=== PATIENT | male | born 1950 | race African-American/Black ===

== ENCOUNTER 2017-10-27 14:17 | Emergency (ER) | payer MEDICARE, MEDICAID ==
[~2017-10-27] VITALS: Ht 177.8 cm; Wt 100.0 kg
[~2017-10-27 14:17] MED LIST: AMLO10TA4 PO; ASPI-1158 PO; BENA40TA9 PO; CYCL-108 PO; DOC Q LACE PO; DOCU-138 PO; GABA300C PO; HYDR-523 PO; LORA10CA PO; MAX PO; OMEP20CA4 PO; PRAV10TA PO; SULI150T PO
[2017-10-27 15:56] LABS: CHLORIDE 108 mEq/L (98-107)
[2017-10-27 15:57] LABS: PROTHROMBIN TIME 10.7 sec (9.4-11.6)
[2017-10-27 16:04] LABS: HEMATOCRIT. 37.5 % (42.0-52.0); HEMOGLOBIN. 12.2 g/dL (14.0-18.0); MEAN CORPUSCULAR HEMOGLOBIN 26.8 pg (28.0-32.0); MEAN CORPUSCULAR VOLUME 82.6 fL (80.0-94.0); MEAN PLATELET VOLUME 7.8 fl (7.4-10.4); PLATELET 270 x1000/uL (130-400); RED BLOOD CELL COUNT 4.55 mill/uL (4.7-6.1); RED CELL DISTRIBUTION WIDTH 15.1 % (11.6-14.6)
[2017-10-27 16:39] LABS: PLATELET ESTIMATE NORMAL
[2017-10-27] MEDS ORDERED: CEFTRIAXONE SODIUM 1 G/VIAL IM ONE (16:45)
[2017-10-27] MEDS ORDERED: LIDOCAINE HCL 1% 20ML VIAL (Pyxis) INJ INFIL ONE (16:45)
[2017-10-27] MEDS ORDERED: LIDOCAINE HCL/PF 1% 10 MG/ML 5ML VIAL IJ NR (18:25)
[2017-10-27 19:01] VITALS: BP 122/75
== END 2017-10-27 19:06 | disposition home or self-care (01) ==
LOC: ER 14:50
DX: L03.116 Cellulitis of left lower limb (principal); I10 Essential (primary) hypertension; D64.9 Anemia, unspecified; G89.29 Other chronic pain; M54.9 Dorsalgia, unspecified; E78.5 Hyperlipidemia, unspecified; E66.9 Obesity, unspecified; Z68.31 Body mass index [BMI] 31.0-31.9, adult; Z90.49 Acquired absence of other specified parts of digestive tract; Z87.828 Personal history of other (healed) physical injury and trauma; Z79.82 Long term (current) use of aspirin
CPT/HCPCS: 36415; 71045; 80053; 85025; 85610; 93970; 96372; 99285; J0696; J3490

== ENCOUNTER 2024-08-03 03:37 | Inpatient (IN) | payer MEDICARE, MEDICAID ==
[~2024-08-03] VITALS: Ht 177.8 cm; Wt 115.2 kg
[~2024-08-03 03:37] MED LIST changes: +ALLO100T MT; +AMLO-905 PO; -AMLO10TA4 PO; +AMLO5TAB88 MT; -ASPI-1158 PO; +ASPI-1406 PO; -BENA40TA9 PO; +BENA40TA91 PO; +DOCU-405 PO; +FURO40TA5 MT; +TRAZ-251 MT
[2024-08-03 04:23] LABS: BASOPHILS % 0.3 % (0.0-2.0); EOSINOPHILS % 0.2 % (0.0-5.0); HEMATOCRIT. 40.5 % (42.0-52.0); LYMPHOCYTES % 14.6 % (20.0-50.0); MEAN CORPUSCULAR HEMOGLOBIN 27.7 pg (28.0-32.0); MEAN CORPUSCULAR HGB CONC 32.1 g/dL (31.0-37.0); MEAN CORPUSCULAR VOLUME 86.3 fL (80.0-94.0); MEAN PLATELET VOLUME 7.4 fl (7.4-10.4); MONOCYTES % 8.8 % (2.0-8.0); NEUTROPHILS % 76.1 % (40.0-76.0); PLATELET 352 x1000/uL (130-400); RED BLOOD CELL COUNT 4.69 mill/uL (4.7-6.1); RED CELL DISTRIBUTION WIDTH 14.7 % (11.6-14.6); WHITE BLOOD COUNT 11.3 x1000/uL (4.5-11.0)
[2024-08-03 04:33] LABS: CHLORIDE 103 mEq/L (98-107); POTASSIUM 5.1 mEq/L (3.5-5.1); SODIUM 135 mEq/L (136-145)
[2024-08-03 04:34] LABS: CALCIUM 9.2 mg/dL (8.7-10.4); CARBON DIOXIDE 22 mEq/L (21-32)
[2024-08-03 04:39] LABS: CREATININE 2.3 mg/dL (0.6-1.3); GLUCOSE 127 mg/dL (70-105); UREA NITROGEN BLOOD 31 mg/dL (9-23)
[2024-08-03 04:41] LABS: TROPONIN I HIGH SENSITIVITY 6 ng/L (3.0-53)
[2024-08-03] MEDS: ASPIRIN 81MG TABLET PO ONE (05:50)
[2024-08-03] MEDS: ONDANSETRON 4MG ODT PO ONE (05:53)
[2024-08-03] MEDS: MAGNESIUM/ALUMINUM HYDROXIDE/SIMETHICONE 30ML UDC PO ONE (05:53)
[2024-08-03] MEDS: PANTOPRAZOLE SODIUM 40 MG/VIAL IV ONE (06:23)
[2024-08-03 07:38] LABS: TROPONIN I HIGH SENSITIVITY 6 ng/L (3.0-53)
[2024-08-03 08:00] VITALS: BP 165/97; PULSE 80; RESP 18; TEMP 36.5; O2SAT 97
[2024-08-03] MEDS: DEXT 5%/0.45% NACL 1000ML 1,000 ML IV SCH (09:00)
[2024-08-03] MEDS ORDERED: HYDRALAZINE 20MG/ML VIAL IV PRN (09:00)
[2024-08-03] MEDS ORDERED: ONDANSETRON HCL 4MG/2ML INJ IV PRN (09:00)
[2024-08-03] MEDS: PANTOPRAZOLE SODIUM 40 MG/VIAL IV SCH (10:14)
[2024-08-03] MEDS: CEFTRIAXONE 1GM/50ML 50 ML IV SCH (11:52)
[2024-08-03 12:00] VITALS: BP 141/86; PULSE 72; RESP 18; TEMP 36.6; O2SAT 96
[2024-08-03 12:26] VITALS: BP 165/97; PULSE 80; RESP 18; TEMP 36.5
[2024-08-03] MEDS ORDERED: LEVOFLOXACIN 500MG PREMIX 100 ML IV SCH (12:30)
[2024-08-03] MEDS ORDERED: ACETAMINOPHEN 650MG SUPP PR PRN (12:30)
[2024-08-03] MEDS ORDERED: MORPHINE SULFATE/PF 1 MG/ML 100 MG in BAG 1 EACH IV PRN (12:30)
[2024-08-03] MEDS ORDERED: IPRATROPIUM/ALBUTEROL 0.5-3(2.5)MG/3ML NEB NEB PRN (12:30)
[2024-08-03] MEDS: DOCUSATE SODIUM 100MG CAPSULE PO SCH (13:43)
[2024-08-03] MEDS: POLYETHYLENE GLYCOL 3350 (17GM) 1 DOSE PACK PO NR (13:43)
[2024-08-03] MEDS: LEVOFLOXACIN 750MG PREMIX 150 ML IV SCH (15:01)
[2024-08-03 16:00] VITALS: BP 128/77; PULSE 76; RESP 18; TEMP 36.2; O2SAT 96
[2024-08-03] MEDS ORDERED: NALOXONE HCL 0.4MG/ML VIAL IV PRN (17:00)
[2024-08-03 17:14] LABS: CHLORIDE 103 mEq/L (98-107); POTASSIUM 5.2 mEq/L (3.5-5.1); SODIUM 135 mEq/L (136-145)
[2024-08-03 17:15] LABS: CALCIUM 8.7 mg/dL (8.7-10.4); CARBON DIOXIDE 24 mEq/L (21-32)
[2024-08-03 17:20] LABS: CREATINE KINASE MB FRACTION < 0.5 ng/mL (0.5-3.6); CREATININE 2.1 mg/dL (0.6-1.3); GLUCOSE 100 mg/dL (70-105); TROPONIN I HIGH SENSITIVITY 5 ng/L (3.0-53); UREA NITROGEN BLOOD 27 mg/dL (9-23)
[2024-08-03 17:22] LABS: CREATINE KINASE 79 IU/L (46-171)
[2024-08-03] MEDS: MORPHINE SULFATE 2 MG/ML INJ (NOT FOR IM USE) IV PRN (17:36)
[2024-08-03 20:00] VITALS: BP 112/69; PULSE 84; RESP 20; TEMP 36.7; O2SAT 96
[2024-08-03] MEDS: SENNOSIDES 8.6MG TABLET PO SCH (20:03)
[2024-08-03 22:26] LABS: *AMPHETAMINES SCREEN URINE NEGATIVE (NEGATIVE); *BARBITURATES SCREEN URINE NEGATIVE (NEGATIVE); *BENZODIAZEPINES SCREEN URINE NEGATIVE (NEGATIVE); *COCAINE SCREEN URINE NEGATIVE (NEGATIVE); CANNABINOID URINE SCREEN NEGATIVE (NEGATIVE); ECSTASY MDMA SCREEN URINE NEGATIVE (NEGATIVE); METHADONE URINE SCREEN NEGATIVE (NEGATIVE); OPIATES URINE SCREEN PRESUMPTIVE POSITIVE (NEGATIVE); PHENCYCLIDINE URINE SCREEN NEGATIVE (NEGATIVE)
[2024-08-03 23:16] VITALS: PULSE 76; RESP 20; O2SAT 96
[2024-08-04] VITALS: BP 128/90; PULSE 80; RESP 16; TEMP 36.5; O2SAT 94
[2024-08-04 00:49] LABS: CREATINE KINASE MB FRACTION 0.9 ng/mL (0.5-3.6)
[2024-08-04 04:00] VITALS: BP 145/85; PULSE 70; RESP 16; TEMP 36.1; O2SAT 97
[2024-08-04 06:24] LABS: BASOPHILS % 0.2 % (0.0-2.0); EOSINOPHILS % 2.1 % (0.0-5.0); HEMOGLOBIN. 12.2 g/dL (14.0-18.0); LYMPHOCYTES % 24.4 % (20.0-50.0); MEAN CORPUSCULAR HEMOGLOBIN 28.4 pg (28.0-32.0); MEAN CORPUSCULAR HGB CONC 32.9 g/dL (31.0-37.0); MEAN CORPUSCULAR VOLUME 86.3 fL (80.0-94.0); MEAN PLATELET VOLUME 7.9 fl (7.4-10.4); MONOCYTES % 13.3 % (2.0-8.0); PLATELET 303 x1000/uL (130-400); RED BLOOD CELL COUNT 4.29 mill/uL (4.7-6.1); RED CELL DISTRIBUTION WIDTH 14.7 % (11.6-14.6); WHITE BLOOD COUNT 8.3 x1000/uL (4.5-11.0)
[2024-08-04 06:31] LABS: ALANINE AMINOTRANSFERASE 14 IU/L (10-49); ALBUMIN 4.4 g/dL (3.2-4.8); ASPARTATE AMINOTRANSFERASE 12 IU/L (<34); BILIRUBIN DIRECT 0.1 mg/dL (<=3.0); BILIRUBIN TOTAL 0.4 mg/dL (0.1-1.0); PROTEIN TOTAL 6.6 g/dL (6.0-8.3)
[2024-08-04 07:04] LABS: HEPATITIS B SURFACE ANTIGEN NEGATIVE (Negative)
[2024-08-04 07:25] LABS: HEPATITIS A AB IGM NEGATIVE (Negative)
[2024-08-04 07:26] LABS: HEPATITIS B CORE AB IGM NEGATIVE (Negative); HEPATITIS C AB NON REACTIVE (Neg) (Negative)
[2024-08-04 08:00] VITALS: BP 132/85; PULSE 75; RESP 18; TEMP 36.5; O2SAT 97
[2024-08-04] MEDS ORDERED: PANTOPRAZOLE SODIUM 40 MG/VIAL IV SCH (09:00)
[2024-08-04 12:00] VITALS: BP 136/74; PULSE 75; RESP 18; TEMP 37.1; O2SAT 98
[2024-08-04] MEDS: SUCRALFATE 1G TABLET PO SCH (14:22)
[2024-08-04] MEDS: ALLOPURINOL 100 MG TABLET PO SCH (14:22)
[2024-08-04 16:00] VITALS: BP 164/90; PULSE 71; RESP 18; TEMP 36.6; O2SAT 99
[2024-08-04 20:00] VITALS: BP 155/87; PULSE 76; RESP 20; TEMP 36.9; O2SAT 96
[2024-08-04] MEDS: TRAZODONE HCL 50MG TABLET PO SCH (20:16)
[2024-08-04] MEDS: GABAPENTIN 300MG CAPSULE PO SCH (20:16)
[2024-08-04] MEDS: CYCLOBENZAPRINE 10MG TABLET PO SCH (20:18)
[2024-08-05] VITALS: BP 137/82; PULSE 78; RESP 20; TEMP 36.8; O2SAT 100
[2024-08-05 04:00] VITALS: BP 134/83; PULSE 77; RESP 20; TEMP 36.8; O2SAT 97
[2024-08-05 07:50] LABS: BASOPHILS % 0.3 % (0.0-2.0); EOSINOPHILS % 3.6 % (0.0-5.0); HEMATOCRIT. 35.5 % (42.0-52.0); HEMOGLOBIN. 11.8 g/dL (14.0-18.0); LYMPHOCYTES % 33.9 % (20.0-50.0); MEAN CORPUSCULAR HEMOGLOBIN 28.6 pg (28.0-32.0); MEAN CORPUSCULAR HGB CONC 33.3 g/dL (31.0-37.0); MEAN CORPUSCULAR VOLUME 85.8 fL (80.0-94.0); MEAN PLATELET VOLUME 7.7 fl (7.4-10.4); MONOCYTES % 14.3 % (2.0-8.0); NEUTROPHILS % 47.9 % (40.0-76.0); PLATELET 296 x1000/uL (130-400); RED BLOOD CELL COUNT 4.14 mill/uL (4.7-6.1); RED CELL DISTRIBUTION WIDTH 14.5 % (11.6-14.6); WHITE BLOOD COUNT 6.4 x1000/uL (4.5-11.0)
[2024-08-05 07:53] LABS: CALCIUM 8.5 mg/dL (8.7-10.4)
[2024-08-05 07:58] LABS: CREATININE 2.1 mg/dL (0.6-1.3)
[2024-08-05 08:00] VITALS: BP 130/81; PULSE 63; RESP 19; TEMP 36.5; O2SAT 100
[2024-08-05] MEDS: AMLODIPINE 5MG TABLET PO SCH (09:28)
[2024-08-05 12:00] VITALS: BP 135/75; PULSE 79; RESP 19; TEMP 36.6; O2SAT 97
[2024-08-05] MEDS: LACTULOSE 20G/30ML UDC PO SCH (14:44)
[2024-08-05 16:10] VITALS: BP 108/70; PULSE 86; RESP 19; TEMP 36.8; O2SAT 100
[2024-08-05 20:00] VITALS: BP 147/79; PULSE 85; RESP 18; TEMP 37.8; O2SAT 99
[2024-08-05] MEDS: MORPHINE SULFATE 2 MG/ML INJ (NOT FOR IM USE) IV NR (22:36)
[2024-08-06] VITALS: BP 143/98; PULSE 73; RESP 18; TEMP 36.5; O2SAT 99
[2024-08-06 05:00] VITALS: BP 118/76; PULSE 78; RESP 18; TEMP 36.5; O2SAT 99
[2024-08-06 08:00] VITALS: BP 143/81; PULSE 80; RESP 16; TEMP 36.6; O2SAT 98
[2024-08-06 12:00] VITALS: BP 140/94; PULSE 82; RESP 18; TEMP 36.7; O2SAT 98
[2024-08-06 16:00] VITALS: BP 138/85; PULSE 80; RESP 18; TEMP 36.6; O2SAT 98
[2024-08-06 17:06] VITALS: BP 138/85; PULSE 80; TEMP 97.9; O2SAT 98
[2024-08-06 17:15] LABS: BASOPHILS % 0.3 % (0.0-2.0); HEMATOCRIT. 36.5 % (42.0-52.0); HEMOGLOBIN. 11.9 g/dL (14.0-18.0); LYMPHOCYTES % 27.7 % (20.0-50.0); MEAN CORPUSCULAR HGB CONC 32.6 g/dL (31.0-37.0); MEAN PLATELET VOLUME 7.8 fl (7.4-10.4); MONOCYTES % 13.6 % (2.0-8.0); NEUTROPHILS % 55.4 % (40.0-76.0); PLATELET 322 x1000/uL (130-400); RED BLOOD CELL COUNT 4.25 mill/uL (4.7-6.1); RED CELL DISTRIBUTION WIDTH 14.6 % (11.6-14.6); WHITE BLOOD COUNT 6.2 x1000/uL (4.5-11.0)
[2024-08-06 17:20] LABS: POTASSIUM 4.6 mEq/L (3.5-5.1)
[2024-08-06 17:21] LABS: CALCIUM 8.6 mg/dL (8.7-10.4)
[2024-08-06 17:26] LABS: CREATININE 2.1 mg/dL (0.6-1.3)
[2024-08-06] MEDS ORDERED: HYDROCODONE/ACETAMINOPHEN 5/325MG TABLET PO SCH (21:00)
[2024-08-07] MEDS ORDERED: FUROSEMIDE 40MG TABLET PO SCH (09:00)
[2024-08-07] MEDS ORDERED: LEVOFLOXACIN 250MG TABLET PO SCH (15:00)
== END 2024-08-06 18:17 | disposition home or self-care (01) | DRG 379 ==
LOC: ER 03:37 → 8WST 06:13 → ENRESERV 07:11
PROVIDERS: ADMIT Internal Medicine; ATTEND Internal Medicine
DX: K29.71 Gastritis, unspecified, with bleeding (principal); E66.01 Morbid (severe) obesity due to excess calories; K21.9 Gastro-esophageal reflux disease without esophagitis; K59.00 Constipation, unspecified; N18.9 Chronic kidney disease, unspecified; E11.22 Type 2 diabetes mellitus with diabetic chronic kidney disease; F10.90 Alcohol use, unspecified, uncomplicated; I12.9 Hypertensive chronic kidney disease with stage 1 through stage 4 chronic kidney disease, or unspecified chronic kidney disease; E78.5 Hyperlipidemia, unspecified; Z79.82 Long term (current) use of aspirin; Z79.899 Other long term (current) drug therapy; Z68.36 Body mass index [BMI] 36.0-36.9, adult; Z87.11 Personal history of peptic ulcer disease; Z86.73 Personal history of transient ischemic attack (TIA), and cerebral infarction without residual deficits
CPT/HCPCS: 36415; 71045; 80048; 80076; 80305; 82270; 82550; 82553; 83036; 84484; 85025; 86705; 86709; 87340; 93005; 94070; 94760; 99285; A4606; J0696; J1956; J2270; J2470; Q0162